=== PATIENT | male | born 1965 | race Caucasian/White ===

== ENCOUNTER 2016-09-24 13:47 | Observation (INO) | payer BC ==
[~2016-09-24] VITALS: Ht 182.9 cm; Wt 96.2 kg
[2016-09-24 14:43] LABS: HEMOGLOBIN 13.8 gm/dl (14.0-17.5); RED BLOOD COUNT 4.88 M/UL (4.20-5.50); WHITE BLOOD COUNT 4.8 K/UL (4.5-11.0)
[2016-09-24 14:56] LABS: BUN/CREATININE RATIO 11 (0-10)
[2016-09-24 21:16] LABS: ADENOVIRUS F 40/41 Not Detected (Negative); ASTROVIRUS Not Detected (Negative); CLOSTRIDIUM DIFFICILE TOX A/B Not Detected (Negative); CRYPTOSPORIDIUM Not Detected (Negative); E.COLI 0157 Not Detected (Negative); ENTAMOEBA HISTOLYTICA Not Detected (Negative); ENTEROAGGREGATIVE E.COLI (EAEC Not Detected (Negative); ENTEROPATHOGENIC E.COLI (EPEC) Not Detected (Negative); ENTEROTOXIGENIC E.COLI (ETEC) Not Detected (Negative); GIARDIA LAMBLIA Not Detected (Negative); NOROVIRUS GI/GII Not Detected (Negative); PLESIOMONAS SHIGELLOIDES Not Detected (Negative); ROTOVIRUS A Not Detected (Negative); SALMONELLA Not Detected (Negative); SAPOVIRUS Not Detected (Negative); SHIG/ENTEROINVAS.ECOLI (EIEC) Not Detected (Negative); SHIGA-LIK TOX.PRO.E.COLI (STEC Not Detected (Negative); VIBRIO Not Detected (Negative); VIBRIO CHOLERAE Not Detected (Negative); YERSINIA ENTEROCOLITICA Not Detected (Negative)
[2016-09-25 07:23] LABS: HEMOGLOBIN 12.8 gm/dl (14.0-17.5); RED BLOOD COUNT 4.59 M/UL (4.20-5.50); WHITE BLOOD COUNT 5.2 K/UL (4.5-11.0)
[2016-09-25 07:39] LABS: BUN/CREATININE RATIO 9 (0-10)
[2016-09-25 10:55] LABS: CAMPYLOBACTER DETECTED (Negative)
[2016-09-25] MEDS ORDERED: LEVAQUIN500 MG PO (15:49)
[2016-09-25] MEDS ORDERED: FLAGYL500 MG PO (15:49)
== END 2016-09-25 18:00 | disposition home or self-care (01) ==
LOC: ER1 13:47 → ZEROF 18:00 → MED SURG 4 18:00
PROVIDERS: Emergency Medicine; Hospitalist; ADMIT Internal Medicine
DX: K51.00 Ulcerative (chronic) pancolitis without complications (principal); B96.81 Helicobacter pylori [H. pylori] as the cause of diseases classified elsewhere
CPT/HCPCS: 36415; 71010; 80053; 80307; 81001; 82550; 82553; 83690; 83735; 83874; 84484; 85025; 87040; 87086; 87507; 93005; 96365; 96367; 96375; 99285; G0378; J0696; J2270; J2405; J7030; J7050; Q9962